=== PATIENT | female | born 1985 | race Caucasian/White ===

== ENCOUNTER → 2018-02-05 11:37 | Outpatient (CLI) | payer OTHER, SELFPAY ==
[2018-02-05 13:19] LABS: Hematocrit 33.7 % (36-46); Hemoglobin 11.8 g/dL (12.0-16.0)
[2018-02-05 13:57] LABS: GTT (PREG) 1 Hour PP 50gm Dose 76 mg/dL (76-139)
== END ==
PROVIDERS: PCP Specialist; Visit Provider Specialist
DX: Z3A.27 27 weeks gestation of pregnancy (principal)
CPT/HCPCS: 36415; 82950; 85014; 85018

== ENCOUNTER → 2018-04-29 12:52 | Outpatient (CLI) | payer OTHER, SELFPAY ==
[2018-04-30 20:35] LABS: Strep Grp B PCR POS for Grp B Strep
== END ==
PROVIDERS: Family Provider Specialist; PCP Specialist; Visit Provider Specialist
DX: Z34.83 Encounter for supervision of other normal pregnancy, third trimester (principal); Z3A.39 39 weeks gestation of pregnancy
CPT/HCPCS: 87653

== ENCOUNTER 2018-05-06 22:09 | Inpatient (IN) | payer OTHER, SELFPAY ==
[2018-05-06] MEDS: LACTATED RINGERS 1,000 ML 100 ML IV (22:30)
[2018-05-06] MEDS: PENICILLIN G POTASSIUM 5,000,000 UNIT in DEXTROSE 5% IN WATER 250 ML IV (22:30)
--- NOTE | 2018-05-06 22:35 | PM.OBHP.1 ---
OB HPI Date/Time Date of admission: 05/06/18 Date Patient Seen: 05/06/18 Time Patient Seen: 22:36 History of Present Condition Chief complaint: OBSERVATION OF LABOR : 2 Para: 1 Estimated Date of Delivery: 05/02/18 Estimated Gestational Age (weeks): 40 Narrative: Kavya George is a 33 year old female 2 para 1 EDC 05/02/18 arrived on Labor and delivery in active labor History of Present care: good care Dating criteria: LMP confirmed by 1st trimester US Ultrasounds: normal mid trimester US Obstetrical complications: none Medical complications: none Preadmission Labs Blood type: AB (+) positive -: Antibody screen: negative, GBS status: positive, HBsAG: negative, HIV: negative, HSV 1: positive, HSV 2: negative and RPR/VDLR: negative -: Chlamydia screen: not detected and Gonorrhea screen: not detected -: Rubella: not immune HCAB: negative PAP: Normal 1 hr GTT: 76 Evaluation Evaluation Baseline heart rate: 130 Variability: Moderate (11-25) monitor accelerations: Present monitor decelerations: Absent Contraction Frequency (minutes): 2 Uterine Contraction Intensity: Strong/Firm Category of Tracing: I Cervical dilation (cm): 9 Cervical effacement (%): 100 station: -1 PFSH Medical History Ankle pain (Chronic 2012) Deviated septum (Chronic) Seasonal allergies (Chronic) Wrist pain (Chronic ~2010) Chickenpox (Resolved 1988) Plantar warts (Resolved 2000) Surgical History Anesthesia (Resolved) Deviated septum (Resolved 2012) History of third molar tooth extraction (Resolved 2004) Family History Grandfather Age: 78 Hypertension High cholesterol Alcoholism Brother No problems noted. Father No problems noted. Grandmother No problems noted. Mother No problems noted. Grandmother No problems noted. Meds Home Medications Medication Instructions Recorded Confirmed Type vitamins with calcium 1 tab PO DAILY #90 tab 12/31/17 Rx no.72-iron 29 mg-folic acid 1 mg tablet Review of Systems Review of Systems Patient denies headaches, scotoma, epigastric pain. She denies any leakage of fluid. Baby has been moving well. All systems reviewed & are unremarkable except as noted in HPI and below Exam Vital Signs (past 8 hours): Blood pressure 122/64, temperature 35.9?, pulse 78 HEENT exam within normal limits. Lungs are clear to auscultation and percussion. Heart is regular rate and rhythm no S3-S4 or murmurs. Abdomen is soft, nontender. Gravid uterus. Extremities without edema and nontender Objective Labs Result Diagrams: 05/06/18 22:15 Assessment and Plan (1) 40 weeks gestation of : Current visit: Yes Status: Acute Plan: Plan: Patient is requesting epidural. She will receive IV penicillin for positive group B strep culture. Anticipate vaginal delivery.
[2018-05-06 22:37] LABS: Add Manual Diff / Slide Review NO; Basophils Percent Auto 0.4 % (0-2); Eosinophils Percent Auto 0.2 % (2-4); Hematocrit 33.1 % (36-46); Hemoglobin 11.5 g/dL (12.0-16.0); Lymphocytes Percent Auto 15.7 % (25-40); Mean Corpuscular HGB Conc 34.7 % (30-36); Mean Corpuscular Hemoglobin 30.5 PG (26-34); Neutrophils Absolute Auto 10200 /uL (3000-5900); Neutrophils Percent Auto 78.7 % (50-75); Platelet Count 188 X10^3/uL (150-400); Red Blood Cell Count 3.75 X10^6/uL (4.0-5.2); Red Cell Distribution Width 13.2 % (11.6-14.8)
[2018-05-06 23:02] VITALS: BP 134/68
--- NOTE | 2018-05-07 01:27 | PM.OBPRVD ---
Delivery date: 05/07/18 Induction method: none Delivery monitor: external FHT and external uterine Route of delivery: Laceration description: Perineal - 2nd Degree Delivery repair: chromic Estimated blood loss (mL): 250 Anesthesia type: Epidural Narrative: Patient arrived on Labor and delivery in active labor. She received an epidural catheter for pain control. She received penicillin for positive group B strep culture. heart tones were category 1 to category 2 throughout labor. She delivered spontaneously over an intact perineum and the infant placed immediately on maternal abdomen. After the cord stopped pulsating the cord was clamped and cut. The placenta delivered spontaneously, intact, with 3 vessels. There were no cervical or vaginal tears. The second-degree perineal tear was repaired with 3 0 chromic suture in the usual 2 layer fashion. Both and mother doing well. Baby 1: gender: Male Presentation: vertex position: Right Occiput Posterior Placenta delivery description: Spontaneous cord vessel description: Nuchal Cord score (1 min): 9 score (5 min): 9 Plan for aftercare: Routine post vaginal delivery
--- NOTE | 2018-05-07 01:30 | P.PCNOB_ITS ---
Delivery date: 05/07/18 Induction method: none Delivery monitor: external FHT and external uterine Route of delivery: Laceration description: Perineal - 2nd Degree Delivery repair: chromic Estimated blood loss (mL): 250 Anesthesia type: Epidural Narrative: Patient arrived on Labor and delivery in active labor. She received an epidural catheter for pain control. She received penicillin for positive group B strep culture. heart tones were category 1 to category 2 throughout labor. She delivered spontaneously over an intact perineum and the infant placed immediately on maternal abdomen. After the cord stopped pulsating the cord was clamped and cut. The placenta delivered spontaneously, intact, with 3 vessels. There were no cervical or vaginal tears. The second- degree perineal tear was repaired with 3 0 chromic suture in the usual 2 layer fashion. Both infant and mother doing well. [place] Baby 1: gender: Male Presentation: vertex position: Right Occiput Posterior Placenta delivery description: Spontaneous cord vessel description: Nuchal Cord score (1 min): 9 score (5 min): 9 Plan for aftercare: Routine post vaginal delivery
[2018-05-07] MEDS: IBUPROFEN 600 MG TABLET PO ×3 (05:09→18:15)
[2018-05-07] MEDS: DERMOPLAST SPRAY 20% 60 ML 1 SPRAY TOP (08:33)
[2018-05-07] MEDS: ACETAMINOPHEN 325 MG TABLET 650 MG PO (08:33)
[2018-05-07] MEDS: DOCUSATE 250 MG CAPSULE PO (08:33)
[2018-05-08] MEDS: IBUPROFEN 600 MG TABLET PO ×3 (00:47→14:18)
[2018-05-08] MEDS: DOCUSATE 250 MG CAPSULE PO (08:12)
[2018-05-08 08:24] LABS: Hematocrit 31.9 % (36-46); Hemoglobin 11.1 g/dL (12.0-16.0)
--- NOTE | 2018-05-08 12:41 | PM.OBDS.1 ---
Discharge Providers Date of admission: 05/06/18 22:09 Primary care physician: Nikia Negro MD Consults: 05/07/18 01:48 Consult to Cleaning Associate Routine Comment: Discharge provider: Nikia Negro MD Discharge Date: 05/08/18 Summary Date Patient Seen: 05/08/18 Time Patient Seen: 12:44 Hospital Course: Patient arrived on Labor and delivery in active labor. She received an epidural catheter for pain control. She received IV antibiotics for positive group B strep culture. She had a spontaneous vaginal delivery and with repair of a second-degree perineal tear. Both she and the baby did well . No signs or symptoms of preeclampsia. Patient with mild lochia. Her extremities are without edema and nontender. Peripartum Data Delivery Method: Natural Vaginal Laceration description: Perineal - 2nd Degree Procedures: Spontaneous vaginal delivery, IV antibiotics, epidural complications: none 1: Gender: Male Discharge Diagnosis (1) 40 weeks gestation of : Status: Acute (2) Vaginal delivery: Status: Acute Status at Discharge Functional status at discharge: independent ambulation Overall status at discharge: patient is progressing back to baseline Time Spent with Patient Total time spent providing and/or coordinating discharge services: Less than 30 minutes Objective Labs Result Diagrams: 05/08/18 08:05 Labs: Laboratory Results - last 24 hr 05/08/18 08:05 Hgb 11.1 L Hct 31.9 L Discharge Plan Discharge Plan Patient Disposition: Home Discharge Med Rec/Prescriptions Prescriptions: New hydrocodone-acetaminophen 5-325 mg Tablet 2 tab PO Q4H PRN (Reason: Pain, Severe (7-10)) Qty: 20 RF: 0 ibuprofen 600 mg Tablet 600 mg PO Q6H PRN (Reason: Pain, Mild (1-3)) Qty: 30 RF: 0 docusate sodium 250 mg Capsule 250 mg PO DAILY Qty: 20 RF: 0 Continue PNV,calcium 72-iron,carb-folic 29 mg iron- 1 mg tablet 1 tab PO DAILY Qty: 90 RF: 0 Follow up/Referrals: Nikia Negro MD [Primary Care Provider] - 1 Month Provider Discharge Instructions Diet: Regular Activity: Nothing in vagina for 4 weeks Skin/Wound/Dressing Care Report to your healthcare provider any signs of infection, such as:: chills, fever, increased pain and unusual drainage Discharge Data Primary Care Provider: Nikia Negro Attending Provider: Nikia Negro Admit Date/Time: 05/06/18 22:09
[2018-05-08 12:49] VITALS: BP 98/65; PULSE 79; RESP 17; TEMP 36.6
[2018-05-08 13:42] VITALS: BP 98/65; PULSE 79; RESP 17; TEMP 36.6
[2018-05-08] MEDS: MEASLES,MUMPS,RUBELLA VACC/PF 0.5 ML VIAL SUBCUT (14:03)
== END 2018-05-08 15:05 | disposition home or self-care (01) | DRG 775 ==
PROVIDERS: Admitting Provider Specialist; Family Provider Specialist; PCP Specialist; Visit Provider Specialist
DX: O99.824 Streptococcus B carrier state complicating childbirth (principal); Z3A.40 40 weeks gestation of pregnancy; Z37.0 Single live birth; O70.1 Second degree perineal laceration during delivery; O69.81X0 Labor and delivery complicated by cord around neck, without compression, not applicable or unspecified
CPT/HCPCS: 01967; 36415; 59050; 59400; 85014; 85018; 85025; 86850; 86900; 86901; J2540

== ENCOUNTER → 2021-10-15 10:40 | Outpatient (CLI) | payer OTHER, MEDICAID, SELFPAY ==
--- NOTE | 2021-10-15 | DI.US.S_ITS ---
PROCEDURE: US OB >= 14 WEEKS FETUS INDICATIONS: 20 WEEK ANATOMY. OUTSIDE/PRIOR DATING DATA: Last menstrual period (LMP): 05/25/2021 LMP-based estimated date of delivery (JETHRO): 03/01/2022. First dating scan (date and location): 10/15/2021. Estimated date of delivery (JETHRO) from first dating scan: 02/24/2022. The calculations are made using the ultrasound JETHRO of 02/24/2022. TECHNIQUE: Real-time scanning was performed of the fetus, with image documentation and biometric measurements. Endovaginal scanning: No COMPARISON: [facility], US, OB >= 14 WEEKS FETUS, 05/04/2018, 13:26. FINDINGS: General: A single living intrauterine gestation is present. Presentation: Vertex. Placenta: Placental position is posterior , and low-lying with the inferior margin of the placenta 9 mm above the internal cervical os.. Amniotic fluid index: 13.2 cm, normal range is 5-24 cm. heart rate: 144 beats per minute. Maternal cervical canal: 3.6 cm cm long. Normal lower limit is 2.5 cm. biometrics: Biparietal diameter: 21 weeks 4 days Head circumference: 21 weeks 1 day Abdominal circumference: 21 weeks 5 days Femur length: 20 weeks 0 days Composite gestational age from present scan: 21 weeks 1 day Estimated weight and percentile: 391 g; 76 percentile Anatomic survey: Neuro: Ventricles are non-dilated at less than 10 mm. Cisterna magna is normal at 3-11 mm. Cerebellum is normal in size and morphology. Nuchal skin fold: Normal at less than 6 mm between 14-21 weeks gestational age. Face: Nose and lips, facial profile are normal. Spine: No evidence for spina bifida. Heart: 4-chambered heart is present, with normal ventricular outflow tracts. Diaphragm: Diaphragm is intact. Stomach: Left-sided stomach is present. Kidneys: No hydronephrosis. Normal is less than 5 mm in 2nd trimester, less than 7 mm in 3rd trimester. Cord: 3-vessel cord has orthotopic insertion. Bladder: Normal in size. Extremities: All 4 extremities identified. IMPRESSION: 1. Single living IUP with composite gestational age of 21 weeks 1 day corresponding to ultrasound JETHRO of 02/24/2022. 2. Normal anatomic survey. 3. Low-lying placenta. Short-term follow-up ultrasound is recommended. We strive to produce accurate, complete, and clear reports of imaging services. To assist us in improving patient care, this report was composed using standard report templates and voice recognition software. Therefore, it may contain abnormal punctuation, insertions and/or omissions. Occasional wrong-word or sound-alike substitutions may occur. Though we review the report and make efforts to correct it, we do recommend that the report be read carefully in proper context to recognize any text inaccuracies. Dictated by: Juan A PRESCOTT Interpreted: Zelalem Bob MD on 10/15/2021 at 12:03 Transcribed by: JO-ANN on 10/16/2021 at 16:45 Approved by: Zelalem Bob M.D. on 10/22/2021 at 10:44
== END ==
PROVIDERS: Family Provider Specialist; PCP Family Medicine; Referring Provider Midwife; Visit Provider Midwife
DX: Z34.92 Encounter for supervision of normal pregnancy, unspecified, second trimester (principal); Z3A.21 21 weeks gestation of pregnancy
CPT/HCPCS: 76811

== ENCOUNTER → 2022-01-11 07:43 | Outpatient (CLI) | payer OTHER, MEDICAID, SELFPAY ==
--- NOTE | 2022-01-11 | DI.US.S_ITS ---
PROCEDURE: US OB LIMITED INDICATIONS: F/U LOW-LYING PLACENTA OUTSIDE/PRIOR DATING DATA: Last menstrual period (LMP): 05/25/2021. LMP-based estimated date of delivery (JETHRO): 03/01/2022. First dating scan (date and location): 10/15/2021. Estimated date of delivery (JETHRO) from first dating scan: 02/24/2022. TECHNIQUE: Real-time scanning was performed of the fetus, with image documentation. COMPARISON: [facility], OB >= 14 WEEKS FETUS, 10/15/2021, 10:56. FINDINGS: A single living intrauterine gestation is present. Presentation: Vertex. Placenta: Placental position is posterior, without previa. No low lying placenta. Amniotic fluid index: 17.6 cm, normal range is 5-24 cm. Single deepest vertical pocket is 6.8 cm. heart rate: 147 beats per minute. Maternal cervical canal: 3.3 cm long. Normal lower limit is 2.5 cm. Gestational age based on prior datin weeks 5 days IMPRESSION: 1. [place] living intrauterine at 33 weeks 5 days based on prior ultrasound. 2. Normal placenta and amniotic fluid. No low lying placenta. Dictated by: Janes Banuelos M.D. on 01/11/2022 at 13:39 Approved by: Janes Banuelos M.D. on 01/11/2022 at 13:43
== END ==
PROVIDERS: Family Provider Specialist; PCP Family Medicine; Referring Provider Midwife; Visit Provider Midwife
DX: Z36.2 Encounter for other antenatal screening follow-up (principal); Z3A.33 33 weeks gestation of pregnancy
CPT/HCPCS: 76815

== ENCOUNTER → 2023-05-20 13:17 | Outpatient (CLI) | payer OTHER, MEDICAID, SELFPAY ==
--- NOTE | 2023-05-20 | DI.US.S_ITS ---
PROCEDURE: US OB <= 14 WEEKS FETUS INDICATIONS: Size and Dates OUTSIDE/PRIOR DATING DATA: Last menstrual period (LMP): 03/30/2023 LMP-based estimated date of delivery (JETHRO): 01/04/2024. First dating scan (date and location): 05/20/2023. Estimated date of delivery (JETHRO) from first dating scan: 01/14/2024. TECHNIQUE: Real-time scanning was performed of the fetus and maternal pelvic organs, with image documentation. Endovaginal scanning was also performed to better visualize the fetus and maternal ovaries. COMPARISON: None. FINDINGS: Embryo: [place]-rump length measures 2 mm corresponding to 5 weeks 6 days. Heart rate: 107 bpm Maternal organs: Right ovary not visualized. 2.2 cm left corpus luteal cyst IMPRESSION: 5 week 6 day single living IUP. We strive to produce accurate, complete, and clear reports of imaging services. To assist us in improving patient care, this report was composed using standard report templates and voice recognition software. Therefore, it may contain abnormal punctuation, insertions and/or omissions. Occasional wrong-word or sound-alike substitutions may occur. Though we review the report and make efforts to correct it, we do recommend that the report be read carefully in proper context to recognize any text inaccuracies. Dictated by: Juan A PRESCOTT Interpreted: Tono Bruce MD on 05/20/2023 at 13:59 Transcribed by: MARIETTA on 05/20/2023 at 14:01 Approved by: Tono Bruce M.D. on 05/21/2023 at 7:06
== END ==
PROVIDERS: Family Provider Specialist; PCP Family Medicine; Referring Provider Midwife; Visit Provider Midwife
DX: Z34.81 Encounter for supervision of other normal pregnancy, first trimester (principal); Z3A.01 Less than 8 weeks gestation of pregnancy
CPT/HCPCS: 76801

== ENCOUNTER → 2023-11-04 16:06 | Outpatient (CLI) | payer OTHER, MEDICAID, SELFPAY ==
--- NOTE | 2023-11-04 | DI.US.S_ITS ---
PROCEDURE: US OB <= 14 WEEKS FETUS INDICATIONS: VIABILITY CHECK - H/O MISCARRIAGE. FIRST TRIMESTER EARLY FOLLOW UP. OUTSIDE/PRIOR DATING DATA: Last menstrual period (LMP): Not available LMP-based estimated date of delivery (JETHRO): Not available. First dating scan (date and location): 11/05/23. Estimated date of delivery (JETHRO) from first dating scan: 06/01/24 from outside early OB ultrasound dated 10/08/23. TECHNIQUE: Real-time scanning was performed of the fetus and maternal pelvic organs, with image documentation. Endovaginal scanning was also performed to better visualize the fetus and maternal ovaries. COMPARISON: [facility], , OB <= 14 WEEKS FETUS, 06/09/2023, 10:28. , , US OB <= 14 WEEKS FETUS, 05/20/2023, 13:34. FINDINGS: Embryo: [place]-rump length 3.3 cm correlates with a current gestational age of 10 weeks 1 day. Heart rate: 182 beats per minute Maternal organs: Ovaries normal considering gestational status, right ovary poorly seen.. IMPRESSION: Single living intrauterine gestation with estimated date of delivery centered on 06/01/24. Follow-up anatomic survey at approximately 20 weeks gestation is recommended. We strive to produce accurate, complete, and clear reports of imaging services. To assist us in improving patient care, this report was composed using standard report templates and voice recognition software. Therefore, it may contain abnormal punctuation, insertions and/or omissions. Occasional wrong-word or sound-alike substitutions may occur. Though we review the report and make efforts to correct it, we do recommend that the report be read carefully in proper context to recognize any text inaccuracies. Dictated by: Mateo Cash M.D. on 11/08/2023 at 20:19 Approved by: Mateo Cash M.D. on 11/08/2023 at 20:23
== END ==
LOC: US 16:07
PROVIDERS: Family Provider Specialist; PCP Family Medicine; Referring Provider Midwife; Visit Provider Midwife
DX: Z34.81 Encounter for supervision of other normal pregnancy, first trimester (principal); Z3A.10 10 weeks gestation of pregnancy
CPT/HCPCS: 76801

== ENCOUNTER → 2024-01-13 09:59 | Outpatient (CLI) | payer OTHER, MEDICAID, SELFPAY ==
--- NOTE | 2024-01-13 10:01 | DI.US.S_ITS ---
PROCEDURE: US OB >= 14 WEEKS FETUS INDICATIONS: 20WK ANATOMY SCAN OUTSIDE/PRIOR DATING DATA: Last menstrual period (LMP): Unknown. LMP-based estimated date of delivery (JETHRO): Unknown First dating scan (date and location): 10/08/2023. Estimated date of delivery (JETHRO) from first dating scan: 06/01/2024. The calculations are made using the clinical JETHRO of 05/26/24 TECHNIQUE: Real-time scanning was performed of the fetus, with image documentation and biometric measurements. COMPARISON: [facility], OB <= 14 WEEKS FETUS, 11/04/2023, 16:32. [facility], OB >= 14 WEEKS FETUS, 10/15/2021, 10:56. FINDINGS: General: A single living intrauterine gestation is present. Presentation: Breech. Placenta: Placental position is posterior , without previa. Amniotic fluid index: 17.2 cm, normal range is 5-24 cm. Single deepest vertical pocket is 6.8 cm. heart rate: 150 beats per minute. Maternal cervical canal: 4.4 cm long. Normal lower limit is 2.5 cm. biometrics: Biparietal diameter: 5.1 cm 21 weeks 3 days Head circumference: 18.6 cm 20 weeks 6 days Abdominal circumference: 15.7 cm 20 weeks 6 days Femur length: 3.0 cm 19 weeks 3 days Clinically estimated gestational age: 20 weeks 6 days Composite gestational age from present scan: 20 weeks 5 days Estimated weight and percentile: 344 g, 18th percentile Anatomic survey: Neuro: Ventricles are non-dilated at less than 10 mm. Cisterna magna is normal at 3-11 mm. Cerebellum is normal in size and morphology. Nuchal skin fold: Normal at less than 6 mm between 14-21 weeks gestational age. Face: Nose and lips, facial profile are normal. Spine: No evidence for spina bifida. Heart: 4-chambered heart is present, with normal ventricular outflow tracts. Diaphragm: Diaphragm is intact. Stomach: Left-sided stomach is present. Kidneys: No hydronephrosis. Normal is less than 5 mm in 2nd trimester, less than 7 mm in 3rd trimester. Cord: 3-vessel cord has orthotopic insertion. Bladder: Normal in size. Extremities: All 4 extremities identified. IMPRESSION: Single live intrauterine with gestational age today of 20 weeks 5 days. Anatomy is within normal limits. We strive to produce accurate, complete, and clear reports of imaging services. To assist us in improving patient care, this report was composed using standard report templates and voice recognition software. Therefore, it may contain abnormal punctuation, insertions and/or omissions. Occasional wrong-word or sound-alike substitutions may occur. Though we review the report and make efforts to correct it, we do recommend that the report be read carefully in proper context to recognize any text inaccuracies. Dictated by: Annalisa Sinha M.D. on 01/13/2024 at 21:28 Approved by: Annalisa Sinha M.D. on 01/13/2024 at 21:31
== END ==
PROVIDERS: Family Provider Specialist; PCP Family Medicine; Referring Provider Midwife; Visit Provider Midwife
DX: Z34.82 Encounter for supervision of other normal pregnancy, second trimester (principal); Z3A.20 20 weeks gestation of pregnancy
CPT/HCPCS: 76811

== ENCOUNTER → 2024-05-04 11:33 | Outpatient (CLI) | payer OTHER, MEDICAID, SELFPAY ==
--- NOTE | 2024-05-04 11:34 | DI.US.S_ITS ---
PROCEDURE: US OB LIMITED INDICATIONS: 3RD TRIMESTER POSITION CHECK OUTSIDE/PRIOR DATING DATA: Last menstrual period (LMP): Unknown. LMP-based estimated date of delivery (JETHRO): Unknown. First dating scan (date and location): 10/08/2023. Estimated date of delivery (JETHRO) from first dating scan: 06/01/2024. The calculations are made using the working JETHRO of 05/26/2024. TECHNIQUE: Real-time scanning was performed of the fetus, with image documentation and biometric measurements. Endovaginal scanning: No COMPARISON: None. FINDINGS: General: A single living intrauterine gestation is present. Presentation: Vertex. Placenta: Placental position is posterior , without previa. Amniotic fluid index: 13.1 cm, normal range is 5-24 cm. Single deepest vertical pocket is 5.1 cm. heart rate: 133 beats per minute. Maternal cervical canal: Nonvisualized Clinically estimated gestational age: 36 week 6 day Other: Not applicable. IMPRESSION: Single live intrauterine consistent with 36 week 6 day gestation. Vertex position Approved by: Joshua Walsh M.D. on 05/06/2024 at 17:23
== END ==
LOC: US 11:34
PROVIDERS: Family Provider Specialist; PCP Family Medicine; Referring Provider Midwife; Visit Provider Midwife
DX: Z34.83 Encounter for supervision of other normal pregnancy, third trimester (principal); Z3A.36 36 weeks gestation of pregnancy
CPT/HCPCS: 76815